=== PATIENT | female | born 1985 | race Caucasian/White ===

== ENCOUNTER 2021-10-18 10:55 | Outpatient (REF) | payer BC, SELFPAY ==
[2021-10-18 13:43] LABS: MANUAL DIFF FLAG NO
[2021-10-18 13:45] LABS: Basophils Percent Auto 0.5 % (0-2); Eosinophils Absolute Auto 0.1 X10*3/uL (0.0-0.4); Eosinophils Percent Auto 1.1 % (0-4); Hematocrit 41.9 % (37.0-47.0); Hemoglobin 14.4 g/dl (12.0-16.0); Imm Gran Abs Auto 0.02 X10*3/uL (0.00-0.03); Imm Gran Pct Auto 0.3 % (0.0-0.4); Lymphocytes Absolute Auto 1.4 X10*3/uL (1.2-4.9); Lymphocytes Percent Auto 19.7 % (20-40); Mean Corpuscular HGB Conc 34.4 g/dl (31.0-35.0); Mean Corpuscular Hemoglobin 32.7 pg (27.0-33.0); Mean Corpuscular Volume 95.2 fL (80.0-98.0); Mean Platelet Volume 10.8 fL (9.4-12.3); Monocytes Absolute Auto 0.6 X10*3/uL (0.1-1.2); Monocytes Percent Auto 8.5 % (2-11); Neutrophils Absolute Auto 5.1 x10*3/uL (2.0-8.3); Neutrophils Percent Auto 69.9 % (45-73); Platelet Count 241 X10*3/uL (160-400); Red Cell Distribution Width 11.8 % (11.0-16.0); White Blood Count 7.3 X10*3/uL (4.8-10.8)
[2021-10-18 13:57] LABS: Alanine Aminotransferase 12 U/L (0-31); Albumin Level 4.5 g/dL (3.5-5.0); Alkaline Phosphatase 59 U/L (39-117); Anion Gap 14 (12-20); Aspartate Amino Transferase 22 U/L (5-31); Bilirubin Total 0.6 mg/dL (0.0-1.0); Blood Urea Nitrogen 7 mg/dL (9-16); Calcium 9.1 mg/dL (8.4-10.2); Carbon Dioxide 23 mmol/L (22-29); Chloride 106 mmol/L (96-108); Cholesterol 162 mg/dL; Estimated Glomerular Filt Rate > 60; Glucose Fasting 93 mg/dL (60-99); HDL Cholesterol 59 mg/dL; LDL Cholesterol Calculated 93 mg/dl; Sodium 138 mmol/L (135-145); Total Protein 7.3 g/dL (6.5-8.0); Triglycerides 51 mg/dL
[2021-10-18 14:18] LABS: Thyroid Stimulating Hormone 1.35 uIU/mL (0.32-4.0); Vitamin D 25-OH Total 32.4 ng/mL (>30)
== END 2021-10-18 10:56 | disposition home or self-care (01) ==
LOC: HO.HMGCLDS 10:55
PROVIDERS: PCP Internal Medicine; Visit Provider Internal Medicine
DX: F41.9 Anxiety disorder, unspecified (principal)
CPT/HCPCS: 36415; 80053; 80061; 82306; 84443; 85025

== ENCOUNTER → 2023-07-21 13:15 | Outpatient (BNVA) | payer SELFPAY | PROVIDERS: PCP Internal Medicine; Visit Provider Physician Assistant Medical ==

== ENCOUNTER 2023-11-24 08:46 | Outpatient (REF) | payer BC, SELFPAY ==
[2023-11-24 10:12] LABS: MANUAL DIFF FLAG NO
[2023-11-24 10:21] LABS: Appearance Urine Cloudy; Color Urine Yellow; Glucose Urine UA Negative (Negative); Leukocyte Esterase Urine Negative (Negative); Nitrite Urine Negative (Negative); PH 6.5 (5.0-9.0); Specific Gravity - Urine 1.015 (1.005-1.025); Urine Blood Negative (Negative); Urine Ketones Negative (Negative); Urine Protein Negative (Neg-Trace)
[2023-11-24 10:28] LABS: Bacteria Urine 1+ (None Seen); Hyaline Casts Urine 0-2 /LPF (0-2); RBC Urine 0-2 /HPF (0-2); WBC Urine 0-5 /HPF (0-5)
[2023-11-24 10:30] LABS: Basophils Percent Auto 0.4 % (0-2); Eosinophils Absolute Auto 0.1 X10*3/uL (0.0-0.4); Eosinophils Percent Auto 1.3 % (0-4); Hematocrit 41.5 % (37.0-47.0); Hemoglobin 14.3 g/dl (12.0-16.0); Imm Gran Abs Auto 0.03 X10*3/uL (0.00-0.03); Imm Gran Pct Auto 0.4 % (0.0-0.4); Lymphocytes Absolute Auto 1.4 X10*3/uL (1.2-4.9); Mean Corpuscular HGB Conc 34.5 g/dl (31.0-35.0); Mean Corpuscular Hemoglobin 32.4 pg (27.0-33.0); Mean Corpuscular Volume 93.9 fL (80.0-98.0); Mean Platelet Volume 10.2 fL (9.4-12.3); Monocytes Absolute Auto 0.4 X10*3/uL (0.1-1.2); Monocytes Percent Auto 5.7 % (2-11); Neutrophils Absolute Auto 5.3 x10*3/uL (2.0-8.3); Neutrophils Percent Auto 73.2 % (45-73); Platelet Count 273 X10*3/uL (160-400); Red Blood Count 4.42 X10*6/uL (4.20-5.50); Red Cell Distribution Width 12.4 % (11.0-16.0); White Blood Count 7.2 X10*3/uL (4.8-10.8)
[2023-11-24 10:42] LABS: Estimated Average Glucose 91 mg/dL; Hemoglobin A1c % 4.8 % (<6.0)
[2023-11-24 10:55] LABS: Alanine Aminotransferase 9 U/L (0-31); Albumin Level 4.2 g/dL (3.5-5.0); Alkaline Phosphatase 81 U/L (39-117); Anion Gap 13 (12-20); Aspartate Amino Transferase 16 U/L (5-31); Bilirubin Total 0.3 mg/dL (0.0-1.0); Blood Urea Nitrogen 12 mg/dL (9-16); Calcium 8.9 mg/dL (8.4-10.2); Carbon Dioxide 22 mmol/L (22-29); Chloride 108 mmol/L (96-108); Cholesterol 174 mg/dL (<200); Estimated Glomerular Filt Rate > 60; Glucose Fasting 100 mg/dL (60-99); HDL Cholesterol 55 mg/dL (>40); LDL Cholesterol Calculated 109 mg/dL (<100); Potassium 4.7 mmol/L (3.3-5.1); Sodium 138 mmol/L (135-145); Total Protein 6.9 g/dL (6.5-8.0); Triglycerides 54 mg/dL (<150)
[2023-11-24 11:09] LABS: Creatinine Urine 66.24 mg/dL; Microalbumin Urine < 5.0 mg/L
[2023-11-24 11:13] LABS: Thyroid Stimulating Hormone 1.29 uIU/mL (0.32-4.0)
== END 2023-11-24 08:47 | disposition home or self-care (01) ==
LOC: HO.HMGCLDS 08:46
PROVIDERS: PCP Internal Medicine; Visit Provider Internal Medicine
DX: Z00.00 Encounter for general adult medical examination without abnormal findings (principal); F33.1 Major depressive disorder, recurrent, moderate; E66.09 Other obesity due to excess calories; Z68.37 Body mass index [BMI] 37.0-37.9, adult; Z13.1 Encounter for screening for diabetes mellitus
CPT/HCPCS: 36415; 80053; 80061; 81001; 82043; 82570; 83036; 84443; 85025

== ENCOUNTER 2024-09-06 09:24 | Outpatient (AMB) | payer BC, SELFPAY ==
--- NOTE | 2024-09-06 09:23 | MHC.PC.OV ---
Vital Signs 09/06/24 09:26 Height 5 ft 6 in Weight 217 lb BMI 35.0 BP 131/71 Pulse 80 Pulse Source Pulse Oximeter Temp 98.2 F Temp Source Temporal Artery Scan Pulse Oximetry (%) 97 Oxygen Delivery Method Room Air Intake Visit Reasons: follow up Licensed Loan Officer Required: No Accompanied by: Self / Same As Patient Allergies penicillin V Allergy (Unknown, Verified 09/06/24 09:52) hives Medication List - Last Reconciled 09/06/24 by Uriah Kumar MD bupropion HCl mg PO propranolol 10 mg PO BID trazodone 100 mg PO BEDTIME PRN Tobacco use date assessed: 09/06/24 Dental Screening Dental Screen Date: 09/06/24 Did you have a dental visit in the last 12 months?: Yes Did you have a dental problem in the last 6 months where you did not have access to dental care?: No Was dental information given to patient?: Patient has dentist [facility] Medical History (Updated 09/06/24 @ 09:56 by Uriah Kumar MD) Sensorineural deafness Obesity (BMI 30.0-34.9) Endogenous depression Family History Father High cholesterol Mother No problems noted. Social History Housing: Apartment Alcohol intake: current Alcohol intake frequency: a few times a week Patient Tobacco Use Status: Never used Tobacco service: No Current occupational status: employed Current occupation: [employer] Cognitive needs: No Hearing needs: Yes (cochlear implant right ear/ L ear hearing aid) Vision needs: Yes (rx glasses) Questionnaire PHQ-9 Over the last 2 weeks, how often have you been bothered by any of the following problems? 1. Little interest or pleasure in doing things: not at all 2. Feeling down, depressed, or hopeless: not at all 3. Trouble falling or staying asleep, or sleeping too much: not at all 4. Feeling tired or having little energy: not at all 5. Poor appetite or overeating: not at all 6. Feeling bad about yourself - or that you are a failure or have let yourself or your family down: not at all 7. Trouble concentrating on things, such as reading the newspaper or watching television: not at all 8. Moving or speaking so slowly that other people could have noticed. Or the opposite - being so fidgety or restless that you have been moving around a lot more than usual: not at all 9. Thoughts that you would be better off or of hurting yourself in some way: not at all Total score: 0 Source: Developed by Drs. Albert Orourke, Enriqueta Garcia, Shadi Rodrgiuez and colleagues, with an educational ni from [employer]. Thrive Questionnaire Date Thrive assessed: 09/06/24 I am a: Patient What is your living situation today?: I have a steady place to live Within the past 12 months, did the food you bought not last and you didn't have the money to get more?: Never true Within the past 12 months, did you worry whether your food would run out before you got money to buy more?: Never true Do you have trouble paying for medicines?: No Do you have trouble getting transportation to medical appointments?: No Do you have trouble paying your heating and electricity bill?: No Do you have trouble taking care of your child, family member or friend?: No Do you have trouble with day-to-day activities such as bathing, preparing meals, shopping, managing finances, etc.?: No Are you currently unemployed and looking for a job?: No Are you interested in more education?: No Please select the resources that you would like help with: None THRIVE Score: 0 AUDIT C Alcohol Use Questionnaire (AUDIT-C) 1. How often do you have a drink containing alcohol?: 2-3 times a week 2. How many drinks containing alcohol do you have on a typical day when you are drinking?: 1 or 2 3. How often do you have six or more drinks on one occasion?: Never Total Score: 3 RL-7 AMB Questionnaire RL-7 Date RL - 7 assessed: 09/06/24 Feeling nervous, anxious, or on edge: 0 = Not at all Not being able to stop or control worryin = Several days Worrying too much about different things: 2 = More than half the days Trouble relaxin = More than half the days Being so restless that it is hard to sit still: 3 = Nearly every day Becoming easily annoyed or irritable: 1 = Several days Feeling afraid as if something awful might happen: 0 = Not at all Total RL-7 score (0-4 normal; 5-9 mild; 10-14 moderate; 15-21 severe): 9 Source: Developed by Drs. Albert Orourke, Enriqueta Garcia, Shadi Rodriguez and colleagues, with an educational ni from [employer]. Physical exam (Primary Care) Vital Signs: Last Vital Signs Temp 98.2 F 09/06/24 09:26 Pulse 80 09/06/24 09:26 BP 131/71 09/06/24 09:26 Pulse Ox 97 09/06/24 09:26 Oxygen Delivery Method Room Air 09/06/24 09:26 BMI result Body Mass Index 35.0 Tobacco/Smoking Status: Tobacco use Status Tobacco use date assessed 09/06/24 09/06/24 09:25 Patient Tobacco Use Status Never used Tobacco 09/06/24 09:25 PHQ-9: PHQ-9 Score PHQ-9: Total score 0 09/06/24 09:25 Thrive Assessment: Date of Thrive Assessment Date Thrive assessed 09/06/24 09/06/24 09:25 Coding Level of Care Code New Pt Level 4 (04793) Complex EM visit Add On G2211 Diagnoses Obesity (BMI 30.0-34.9) E66.811 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 (2) Endogenous depression: Code(s): F33.2 - Major depressive disorder, recurrent severe without psychotic features Category: Medical Plan: Continue current medications. Condition is stable. (3) Sensorineural deafness: Code(s): H90.5 - Unspecified sensorineural hearing loss Category: Medical Plan: Patient has a cochlear implant in the right ear Plan History of Present Illness The patient is a 39-year-old female presenting with concerns regarding weight management. She describes a long-standing struggle with weight, having gained approximately 60 pounds in recent years. Factors contributing to this weight gain include increased alcohol intake and physical exhaustion from her job. She reports being highly interested in GLP-1 receptor agonists like Mounjaro or Zepbound for weight loss assistance, as suggested by her father. The patient is not diabetic and is seeking guidance on acquiring such medication through her insurance. She also has a significant history of hearing loss, diagnosed at the age of 26, which was life-changing with the use of hearing aids. In 2023, she experienced sudden complete deafness in her right ear, unresponsive to medical treatments. A cochlear implant was placed later that year, restoring some function, although it required a period of adaptation and rehabilitation. The patient remains attentive to her auditory status, adjusting her cochlear implant as needed for different environments. 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 - Alcohol use: Consumes alcohol primarily on weekends; expressed as a factor in weight gain. - Familial support: Close relationship with father, who is actively involved in her care. - Family: Has two older sisters, both in good health. Review of Systems - Ears: Reports usage of a cochlear implant after right ear deafness. - General: Reports weight gain of approximately 60 pounds. - General: Reports tiredness after work. - General: Denies being diabetic. Physical Exam General: Cooperative and healthy appearing Nutritional Appearance: Well nourished Orientation/consciousness: Patient oriented x3 Limitations: No limitations Head: Normal to inspection General: Appearance normal, both eyes and all related structures Neck: Normal visual inspection Chest: Normal palpation of entire chest wall Respiratory: N ormal respiratory effort Neurology: Patient oriented x3, has a cochlear implant in the right ear, hearing aid in the left ear. Results Plan We discussed the possibility of prescribing GLP-1 receptor agonists, Mounjaro or Zepbound, to support her weight management goals. The patient should explore insurance coverage options for the medication due to potential high costs and contact her insurance company for further information. Preliminary blood work is recommended to ensure overall health readiness before starting the medication. For her hearing loss, she will continue with current management as her cochlear implant adapts well to her daily activities. Additionally, I advised limiting alcohol consumption to aid in weight loss. Patient was informed and verbally consented to the use of an ambient scribe for clinic note documentation during this visit. Discussion Notes I informed the patient about the benefits and mechanisms of GLP-1 receptor agonists, emphasizing their potential to aid in weight management through appetite reduction. We discussed insurance hurdles and the importance of advocating for prescription coverage by contacting the insurance provider. I advised undergoing blood work to check overall health status before beginning any new medication regimen. The benefits of her cochlear implant and its successful adaptation were acknowledged, emphasizing ongoing adjustments to maintain auditory health. Alternatives to purchasing the medication at [facility] were advised against, focusing on insurance advocacy first. She was encouraged to maintain open communication through the patient portal for further follow-ups. Patient Instructions - Pursue blood work as recommended for baseline health evaluation. - Contact your insurance company regarding coverage options for Mounjaro or Zepbound. - Advocate for prescription coverage and inform me of insurance feedback. - Avoid purchasing medications at [facility] until insurance options are explored. - Reduce alcohol consumption to support weight management. - Use the portal for any non-urgent questions or updates.
[2024-09-06 09:26] VITALS: BP 131/71; PULSE 80; TEMP 36.8; O2SAT 97; BMI 35.0
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
== END 2024-09-06 09:54 | disposition home or self-care (01) ==
LOC: HO.HMCSH 09:24
PROVIDERS: PCP Internal Medicine; Visit Provider Internal Medicine
DX: E66.811 Obesity, class 1 (principal); F33.2 Major depressive disorder, recurrent severe without psychotic features; H90.5 Unspecified sensorineural hearing loss

== ENCOUNTER → 2024-09-06 09:24 | Outpatient (BNVA) | payer BC, SELFPAY | PROVIDERS: PCP Internal Medicine; Visit Provider Internal Medicine | DX: Z13.89 Encounter for screening for other disorder (principal) ==

== ENCOUNTER 2025-03-17 13:27 | Outpatient (REF) | payer BC, SELFPAY ==
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
[2025-03-17 16:23] LABS: Hematocrit 40.1 % (37.0-47.0); Hemoglobin 13.7 g/dl (12.0-16.0); Mean Corpuscular HGB Conc 34.2 g/dl (31.0-35.0); Mean Corpuscular Hemoglobin 32.2 pg (27.0-33.0); Mean Corpuscular Volume 94.4 fL (80.0-98.0); NRBC Abs Auto 0.000 X10*3/uL (0.0-0.012); NRBC Pct Auto 0.0 /100WBC (0.0-0.2); Platelet Count 239 X10*3/uL (160-400); Red Blood Count 4.25 X10*6/uL (4.20-5.50); White Blood Count 7.5 X10*3/uL (4.8-10.8)
[2025-03-17 16:41] LABS: Alanine Aminotransferase 11 U/L (0-31); Albumin Level 4.5 g/dL (3.5-5.0); Alkaline Phosphatase 55 U/L (39-117); Anion Gap 11 (12-20); Aspartate Amino Transferase 28 U/L (5-31); Blood Urea Nitrogen 9 mg/dL (9-16); Calcium 8.5 mg/dL (8.4-10.2); Carbon Dioxide 24 mmol/L (22-29); Chloride 103 mmol/L (96-108); Cholesterol 185 mg/dL (<200); Estimated Glomerular Filt Rate > 60; HDL Cholesterol 59 mg/dL (>40); Potassium 3.9 mmol/L (3.3-5.1); Sodium 134 mmol/L (135-145); Total Protein 6.9 g/dL (6.5-8.0); Triglycerides 98 mg/dL (<150)
[2025-03-17 16:58] LABS: Thyroid Stimulating Hormone 1.28 uIU/mL (0.32-4.0)
[2025-03-17 17:06] LABS: Appearance Urine Clear; Glucose Urine UA Negative (Negative); PH 5.5 (5.0-9.0); Specific Gravity - Urine 1.010 (1.005-1.025)
== END 2025-03-17 13:28 | disposition home or self-care (01) ==
LOC: HO.HMGCLDS 13:27
PROVIDERS: PCP Internal Medicine; Visit Provider Internal Medicine
DX: Z13.1 Encounter for screening for diabetes mellitus (principal); Z13.6 Encounter for screening for cardiovascular disorders; F33.2 Major depressive disorder, recurrent severe without psychotic features
CPT/HCPCS: 36415; 80048; 80061; 80076; 81003; 83036; 84443; 85027

== ENCOUNTER 2025-03-20 09:34 | Outpatient (AMB) | payer BC, SELFPAY ==
[2025-03-20 09:47] VITALS: BP 113/68; PULSE 88; RESP 14; TEMP 36.5; O2SAT 97; BMI 30.7
--- NOTE | 2025-03-20 09:47 | A.OFFPC_ITS ---
Vital Signs 03/20/25 09:47 Height 5 ft 6 in Weight 190 lb BMI 30.7 BP 113/68 Blood Pressure Location Rt brachial Position Sitting Respiration 14 Pulse 88 Pulse Source Pulse Oximeter Temp 97.7 F Temp Source Temporal Artery Scan Pulse Oximetry (%) 97 Oxygen Delivery Method Room Air Intake Visit Reasons: 6 month f/u Coding Compliance Specialist Required: No Accompanied by: Self / Same As Patient Allergies penicillin V Allergy (Unknown, Verified 03/20/25 09:48) hives Tobacco use date assessed: 09/06/24 Dental Screening Dental Screen Date: 09/06/24 [facility] Medical History Sensorineural deafness Obesity (BMI 30.0-34.9) Endogenous depression Family History Father High cholesterol Mother No problems noted. Social History Housing: Apartment Alcohol intake: current Alcohol intake frequency: a few times a week Patient Tobacco Use Status: Never used Tobacco service: No Current occupational status: employed Current occupation: [employer] Cognitive needs: No Hearing needs: Yes (cochlear implant right ear/ L ear hearing aid) Vision needs: Yes (rx glasses) Questionnaire PHQ-9 Over the last 2 weeks, how often have you been bothered by any of the following problems? 1. Little interest or pleasure in doing things: not at all 2. Feeling down, depressed, or hopeless: not at all 3. Trouble falling or staying asleep, or sleeping too much: not at all 4. Feeling tired or having little energy: not at all 5. Poor appetite or overeating: not at all 6. Feeling bad about yourself - or that you are a failure or have let yourself or your family down: not at all 7. Trouble concentrating on things, such as reading the newspaper or watching television: not at all 8. Moving or speaking so slowly that other people could have noticed. Or the opposite - being so fidgety or restless that you have been moving around a lot more than usual: not at all 9. Thoughts that you would be better off or of hurting yourself in some way: not at all Total score: 0 Source: Developed by Drs. Albert Orourke, Shadi Carvajal and colleagues, with an educational ni from [employer]. Thrive Questionnaire Date Thrive assessed: 09/06/24 I am a: Patient What is your living situation today?: I have a steady place to live Within the past 12 months, did the food you bought not last and you didn't have the money to get more?: Never true Within the past 12 months, did you worry whether your food would run out before you got money to buy more?: Never true Do you have trouble paying for medicines?: No Do you have trouble getting transportation to medical appointments?: No Do you have trouble paying your heating and electricity bill?: No Do you have trouble taking care of your child, family member or friend?: No Do you have trouble with day-to-day activities such as bathing, preparing meals, shopping, managing finances, etc.?: No Are you currently unemployed and looking for a job?: No Are you interested in more education?: No Please select the resources that you would like help with: None THRIVE Score: 0 AUDIT C Alcohol Use Questionnaire (AUDIT-C) 1. How often do you have a drink containing alcohol?: 2-3 times a week 2. How many drinks containing alcohol do you have on a typical day when you are drinking?: 1 or 2 3. How often do you have six or more drinks on one occasion?: Never Total Score: 3 RL-7 AMB Questionnaire RL-7 Date LR - 7 assessed: 09/06/24 Feeling nervous, anxious, or on edge: 0 = Not at all Not being able to stop or control worryin = Several days Worrying too much about different things: 2 = More than half the days Trouble relaxin = More than half the days Being so restless that it is hard to sit still: 3 = Nearly every day Becoming easily annoyed or irritable: 1 = Several days Feeling afraid as if something awful might happen: 0 = Not at all Total RL-7 score (0-4 normal; 5-9 mild; 10-14 moderate; 15-21 severe): 9 Source: Developed by Enriqueta Brice Kurt Kroenke and colleagues, with an educational ni from [employer]. Physical exam (Primary Care) Vital Signs: Last Vital Signs Temp 97.7 F 03/20/25 09:47 Pulse 88 03/20/25 09:47 Resp 14 03/20/25 09:47 BP 113/68 03/20/25 09:47 Pulse Ox 97 03/20/25 09:47 Oxygen Delivery Method Room Air 03/20/25 09:47 BMI result Body Mass Index 30.7 Tobacco/Smoking Status: Tobacco use Status Tobacco use date assessed 09/06/24 03/20/25 09:53 Patient Tobacco Use Status Never used Tobacco 03/20/25 09:53 PHQ-9: PHQ-9 Score PHQ-9: Total score 0 03/20/25 09:53 Thrive Assessment: Date of Thrive Assessment Date Thrive assessed 09/06/24 03/20/25 09:53 Coding Level of Care Code Est Pt Level 4 (08483) Complex EM visit Add On G2211 Diagnoses 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 - Her current medications include bupropion once daily, propranolol, semaglutide for weight loss, and trazodone for sleep. - She reports sleeping very well and takes either half or a whole tablet of trazodone as needed. - The patient reports that her recent blood work from 03/17 is good, showing no anemia and normal sodium levels. - She states that things have been going well with her semaglutide treatment. 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 Review of Systems - General: Reports feeling tired after waking up at 5 a.m. and being unable to return to sleep. - Neurological: Reports good sleep on her current medication regimen. Physical Exam General: Cooperative and healthy appearing Nutritional Appearance: Well nourished Orientation/consciousness: Patient oriented x3 Limitations: No limitations Head: Normal to inspection General: Appearance normal, both eyes and all related structures Neck: Normal visual inspection Chest: Normal palpation of entire chest wall Respiratory: Breathe ormal respiratory effort Neurology: Patient oriented x3 Results - Labs: Recent blood work from 03/17 was reviewed and noted to be good, with no anemia and normal sodium. Plan - Administer influenza vaccine today. - Continue current medications, including bupropion, propranolol, semaglutide, and trazodone. - The patient does not require any medication refills at this time. - Follow up in six months. Discussion Notes I reviewed the patient's recent blood work from 03/17, which was normal, and I noted she is not anemic. We discussed her current medications, which include bupropion, propranolol, semaglutide, and trazodone. I informed the patient that she is in good health. An influenza vaccine will be administered during this visit. I advised a follow-up appointment in six months. Patient Instructions - You will receive a flu shot today in the office. - Continue taking your current medications, including bupropion, propranolol, Wegovy, and trazodone, as prescribed. - Your recent blood work was good. - Please schedule a follow-up appointment in six months.
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
== END 2025-03-20 10:18 | disposition home or self-care (01) ==
LOC: HO.HMCSH 09:34
PROVIDERS: PCP Internal Medicine; Visit Provider Internal Medicine
DX: F33.2 Major depressive disorder, recurrent severe without psychotic features (principal); Z23 Encounter for immunization

== ENCOUNTER → 2025-03-20 09:34 | Outpatient (BNVA) | payer BC, SELFPAY | PROVIDERS: PCP Internal Medicine; Visit Provider Internal Medicine | DX: Z23 Encounter for immunization (principal); F33.2 Major depressive disorder, recurrent severe without psychotic features | CPT/HCPCS: 90471; 90656; 96127 ==